=== PATIENT | female | born 1985 | race Caucasian/White ===

== ENCOUNTER 2020-04-26 09:57 | Day surgery (SDC) | payer BC, OTHER ==
[2020-04-24 12:01] VITALS: BMI 35.4
[~2020-04-26 09:57] MED LIST: DEXAMETHASONE SOD PHOSPHATE 10 MG/ML 1 ML VIAL IV ONE; HYDROmorphone 0.5 MG/0.5 ML SYRINGE IVP PRN; KETOROLAC 30 MG/ML 1 ML VIAL IVP SCH; LACTATED RINGERS 1,000 ML IV SCH; LIDOCAINE 1% (10MG/ML) FOR IV START INTRADERMA PRN; ONDANSETRON 4 MG/2 ML VIAL IVP PRN; SCOPOLAMINE 1.5MG/72HR PATCH TRANSDERM ONE
[2020-04-26 10:11] VITALS: RESP 16
[2020-04-26] MEDS ORDERED: ONDANSETRON 4 MG/2 ML VIAL ONE (10:20)
[2020-04-26] MEDS ORDERED: LIDOCAINE 1% (10MG/ML) FOR IV START INTRADERMA ONE (10:30)
[2020-04-26 10:32] LABS: Basophils # (A) 0.1 k/uL (0-0.2); Basophils % (A) 1 %; Eosinophils # (A) 0.1 k/uL (0-0.7); Eosinophils % (A) 1 %; HGB 14.3 gm/dL (11.4-16.0); Lymphocytes % (A) 25 %; MCH 27.9 pg (25.0-35.0); MCHC 33.2 g/dL (31.0-37.0); Mean Platelet Volume 7.1; Monocytes # (A) 0.4 k/uL (0-1.0); Monocytes % (A) 5 %; Neutrophils # (A) 5.3 k/uL (1.3-7.7); Neutrophils % (A) 66 %; Platelet Count 268 k/uL (150-450); RBC 5.13 m/uL (3.80-5.40); RDW 12.6 % (11.5-15.5); WBC 8.1 k/uL (3.8-10.6)
[2020-04-26] MEDS ORDERED: SUCCINYLCHOLINE CHLORIDE 100 MG/5 ML SYR IV ONE (11:00)
[2020-04-26] MEDS ORDERED: LIDOCAINE 1% INJ 10MG/ML (20 ML MDV) ONE (11:00)
[2020-04-26] MEDS ORDERED: KETOROLAC 30 MG/ML 1 ML VIAL ONE (11:00)
[2020-04-26] MEDS ORDERED: MIDAZOLAM 2 MG/2 ML VIAL ONE (11:00)
[2020-04-26] MEDS ORDERED: PROPOFOL 10 MG/ML 20 ML VIAL IV ONE (11:00)
[2020-04-26] MEDS ORDERED: fentaNYL (PF) 50 MCG/ML 2 ML AMP ONE (11:00)
[2020-04-26] MEDS ORDERED: METOCLOPRAMIDE 5 MG/ML 2 ML VIAL IVP PRN (11:41)
[2020-04-26] MEDS ORDERED: KETOROLAC 30 MG/ML 1 ML VIAL IVP PRN (11:41)
[2020-04-26] MEDS ORDERED: diphenhydrAMINE 50 MG/ML 1 ML VIAL IVP PRN (11:41)
[2020-04-26] MEDS ORDERED: Acetaminophen-Codeine 300-30mg TAB PO PRN ×2 (11:41)
[2020-04-26] MEDS ORDERED: IBUPROFEN 600 MG TAB PO PRN (11:41)
[2020-04-26] MEDS ORDERED: SIMETHICONE 80 MG CHEWABLE PO PRN (11:41)
[2020-04-26] MEDS ORDERED: LACTATED RINGERS 1,000 ML IV SCH (11:45)
--- NOTE | 2020-04-26 11:46 | P.OP ---
Date of Procedure: 04/26/20 Preoperative Diagnosis: #1. 8+ week missed Postoperative Diagnosis: Same Procedure(s) Performed: #1. Dilation and aspiration curettage Anesthesia: ADOLPH Surgeon: Jr Storey Estimated Blood Loss (ml): 200 IV fluids (ml): 700 Urine output (ml): 20 Pathology: other (Endometrial contents) Condition: stable Disposition: PACU Operative Findings: Preoperative pelvic examination demonstrated a roughly 9 week slightly retr overted mobile normal shaped uterus. There was also noted to be fairly significant prolapse with the cervix at just under grade 3 descensus. The uterus sounded to 11 cm. The #9 curved aspiration curet was utilized and tissue was clearly seen passing through the tubing. There was no tissue with a sharp curette or on the final pass of the aspiration curet and the typical gritty texture was encountered throughout. The patient is an excellent candidate for vaginal instructed he should it ever become necessary. Description of Procedure: The patient was prepped and draped in usual fashion after general endotracheal anesthesia was administered by the anesthesiologist. A weighted speculum was placed and the bladder drained of approximately 20 mL of clear denton urine. A single-tooth tenaculum was applied to the anterior lip of the cervix and uterus sounded to 11 cm as noted above. Serial dilation was carried out to admit a #9 curved aspiration curet which was placed to the fundus of the uterus and suction applied. After adequate suction had been built, thorough circumferential aspiration curettage was carried out from fundus to cervix with tissue clearly s een passing through the tubing. A second pass was made with the aspiration curet at which time no tissue seen passing through the tubing. It was then set aside for moment in favor of a medium sharp curet which was utilized to thoroughly and circumferentially curet the in vitro cavity with the typical gritty texture encountered throughout. No tissue was returned. One last pass was made with the aspiration curet was time no further tissue was noted. All instrumentation was removed. The uterus was appreciably smaller following the procedure. There was no ongoing bleeding from the cervix. Estimated blood loss for the case is approximately 200 mL. There were no complications. All sponge, instrument, and needle counts were correct. The patient tolerated the procedure well and proceeded to the recovery room in stable condition.
[2020-04-26 11:47] VITALS: TEMP 97.6
[2020-04-26] MEDS ORDERED: LACTATED RINGERS 1,000 ML IV ONE (12:24)
[2020-04-26 12:46] VITALS: BP 110/79; PULSE 84
== END 2020-04-26 13:06 | disposition home or self-care (01) ==
LOC: OR 09:57
PROVIDERS: ATTEND Obstetrics & Gynecology
DX: O02.1 Missed abortion (principal); J45.909 Unspecified asthma, uncomplicated; G25.81 Restless legs syndrome; G47.30 Sleep apnea, unspecified; E28.2 Polycystic ovarian syndrome; Z90.49 Acquired absence of other specified parts of digestive tract; Z98.890 Other specified postprocedural states; Z82.49 Family history of ischemic heart disease and other diseases of the circulatory system; Z79.899 Other long term (current) drug therapy; Z88.6 Allergy status to analgesic agent
CPT/HCPCS: 85025; 59820; J2250; J1100; J2405; J2001; J3010; J1885; J0330; J2704; 88305

== ENCOUNTER 2021-03-24 10:15 | Outpatient (CLI) | payer BC ==
[2021-03-24 12:23] VITALS: BP 133/79; PULSE 112; RESP 16; TEMP 98.4
--- NOTE | 2021-04-20 11:24 | P.MSEPDOC ---
Presenting Problems - Arrival Data Date of Arrival on Unit: 03/24/21 Time of Arrival on Unit: 10:15 Mode of Transport: Ambulatory - Complaint OB-Reason for Admission/Chief Complaint: NST Medical History - Information : 6 Para: 3 Term: 3 : 0 Abortions: Spontaneous or Elective: 2 Number of Living Children: 3 - Gestational Age Gestational Age by RUEL (wks/days): 32 Weeks and 5 Days - History Complications: GDM Review of Systems - Review of Systems Constitutional: No problems Breast: No problems ENT: No problems Cardiovascular: No problems Respiratory: No problems Gastrointestinal: No problems Genitourinary: No problems Musculoskeletal: No problems Neurological: No problems Skin: No problems Vital Signs - Temperature Temperature: 98.4 F Temperature Source: Oral - Pulse Right Sitting Pulse Rate: 112 Pulse Assessment Method: Automatic Cuff - Respirations Respiratory Rate: 16 Oxygen Delivery Method: Room Air - Blood Pressure Right Arm Blood Pressure: 133/79 Blood Pressure Mean: 97 Blood Pressure Source: Automatic Cuff Medical Screen Scoring - Assessment - Baby A Baseline FHR: 130 Physician Notification - Physician Notified Physician Notified Date: 03/24/21 Physician Notified Time: 12:06 Physician: Bridger Saenz Order Received: Yes (D/C home) Disposition - Disposition OB Disposition: Discharge to home Discharge Date: 03/24/21 Discharge Time: 12:06 I agree with the RN Medical Screening Exam: Yes Physician's MSE Comment: I have neither seen nor examined the patient. Case reviewed; plan agreed upon as documented in EMR&OBIX.: Yes Diagnosis: RELATED CONDITIONS, UNSPECIFIED, THIRD TRIMESTER
== END 2021-03-24 12:10 | disposition home or self-care (01) ==
LOC: FBPOP 10:15
PROVIDERS: ATTEND Obstetrics & Gynecology
DX: O26.93 Pregnancy related conditions, unspecified, third trimester (principal); Z3A.32 32 weeks gestation of pregnancy
CPT/HCPCS: 59025; 99213

== ENCOUNTER 2021-05-12 06:15 | Inpatient (IN) | payer BC ==
[2021-05-12] MEDS ORDERED: METHYLERGONOVINE 0.2 MG/ML 1 ML AMP IM PRN (06:35)
[2021-05-12] MEDS ORDERED: TERBUTALINE 1 MG/ML VIAL SQ PRN (06:35)
[2021-05-12] MEDS ORDERED: LIDOCAINE 0.5% (PF) 5 MG/ML (50 ML SDV) SQ PRN (06:35)
[2021-05-12] MEDS ORDERED: OXYTOCIN 10 UNIT/ML 1 ML VIAL IM PRN (06:35)
[2021-05-12] MEDS ORDERED: CARBOPROST TROMETHAMINE 250 MCG/ML 1 ML AMP IM PRN (06:35)
[2021-05-12] MEDS ORDERED: OXYTOCIN 30 UNITS/500 ML NS 30 UNIT in SALINE 1 500ML.BAG IV SCH ×2 (06:45→17:30)
[2021-05-12] MEDS: LACTATED RINGERS 1,000 ML IV SCH ×2 (06:48→13:12)
[2021-05-12 07:05] LABS: Basophils % (A) 0 %; Eosinophils # (A) 0.1 k/uL (0-0.7); Eosinophils % (A) 1 %; HCT 34.3 % (34.0-46.0); HGB 11.7 gm/dL (11.4-16.0); Lymphocytes # (A) 2.3 k/uL (1.0-4.8); Lymphocytes % (A) 23 %; MCH 26.7 pg (25.0-35.0); MCV 78.5 fL (80.0-100.0); Monocytes # (A) 0.7 k/uL (0-1.0); Monocytes % (A) 7 %; Neutrophils # (A) 6.6 k/uL (1.3-7.7); Neutrophils % (A) 67 %; Platelet Count 250 k/uL (150-450); RBC 4.38 m/uL (3.80-5.40); RDW 13.5 % (11.5-15.5); WBC 9.9 k/uL (3.8-10.6)
[2021-05-12 07:16] LABS: Glucose,Whole Blood 86 mg/dL (75-99)
[2021-05-12] MEDS ORDERED: BUTORPHANOL 1 MG/ML 1 ML VIAL IV PRN (08:43)
--- NOTE | 2021-05-12 08:50 | P.HPOB ---
History of Present Illness H&P Date: 05/12/21 Chief Complaint: 39+ weeks, induction of labor The patient is a 36-year-old 6 para 30-3 admitted at 39+ weeks as established by last menstrual period and confirmed by 9 week ultrasound. She is admitted for elective induction of labor with all signs reassuring. Her has been uncomplicated by advanced maternal age with the patient having declined testing. She additionally was found to be a gestational diabetic which ultimately required insulin to control but was well- controlled throughout the . She has a history of nephrolithiasis with 1 episode during the as well. She is additionally found to have the fetus at the 90th percentile growth in the third trimester and additionally had polyhydramnios. testing throughout the has been reassuring. Group B strep status is negative. Obstetrical history 6 para 30-3 with 3 term vaginal deliveries and 2 early miscarriages. Current statistics are listed in history present illness. EDC of 05/14/2021 was established by last menstrual period and confirmed by 9 week ultrasound. Laboratory workup demonstrates a blood type of O+ with a negative antibody screen. Rubella status is immune. Remainder of the laboratory workup was within normal limits. Early Glucola was elevated and followed by an abnormal three-hour glucose tolerance test making the diagnosis of gestational diabetes. Group B strep status is negative. Aerologist history: Unremarkable with no history of any infections to include STDs. Review of Systems Review of systems is confined to history of present illness. Past Medical History Past Medical History: Asthma, GERD/Reflux Additional Past Medical History / Comment(s): kidney stones, History of Any Multi-Drug Resistant Organisms: None Reported Past Surgical History: Adenoidectomy, Cholecystectomy, Ear Surgery Additional Past Surgical History / Comment(s): BMT Past Anesthesia/Blood Transfusion Reactions: Motion Sickness, Postoperative Nausea & Vomiting (PONV) Past Psychological History: No Psychological Hx Reported Smoking Status: Never smoker Past Alcohol Use History: None Reported Past Drug Use History: None Reported - Past Family History Sister(s) Family Medical History: Pulmonary Embolus Additional Family Medical History / Comment(s): Stroke Father Family Medical History: Cancer Additional Family Medical History / Comment(s): Throat Medications and Allergies Home Medications Medication Instructions Recorded Confirmed Type Insulin Aspart [NovoLOG] 0 units SQ ACHS 03/24/21 05/12/21 History Insulin Glargine [Lantus] 12 unit SQ DAILY 03/24/21 05/12/21 History Pnv No.95/Ferrous Fum/Folic AC 1 tab PO DAILY 03/24/21 05/12/21 History [ Multivitamin Tablet] Allergies Allergy/AdvReac Type Severity Reaction Status Date / Time NSAIDS (Non-Steroidal AdvReac Abdominal Verified 05/12/21 07:00 Anti-Inflamma Pain Exam Vital Signs Temp Pulse Resp BP Pulse Ox 05/12/21 06:33 97.1 F L 104 H 16 132/72 99 Intake and Output 05/11/21 05/12/21 05/12/21 22:59 06:59 14:59 Other: Weight 92.986 kg In general, this is a well-developed, well-nourished white female in no acute distress. Her heart has a regular rhythm and rate without murmur. Her lungs are clear to auscultation bilaterally in all ortiz. Her abdomen is gravid, nondistended, has normal active bowel sounds, soft, nontender, and without any palpable masses aside from uterine fundus. Her extremities without any cyanosis, clubbing, or significant edema and are nontender to palpation bilaterally. Digital cervical examination demonstrates her cervix to be 3+ centimeters dilated, approximately 50% effaced, the vertex in presentation at -2 station. Artificial rupture of membranes is carried out demonstrating clear to lightly meconium-stained fluid. Results Result Diagrams: 05/12/21 06:45 Abnormal Lab Results - Last 24 Hours (Table) 05/12/21 Range/Units 06:45 MCV 78.5 L (80.0-100.0) fL Assessment and Plan (1) Polyhydramnios Current Visit: Yes Status: Acute Code(s): O40.9XX0 - POLYHYDRAMNIOS, UNSP TRIMESTER, NOT APPLICABLE OR UNSP SNOMED Code(s): 00727287 (2) Term Current Visit: Yes Status: Acute Code(s): Z34.90 - ENCNTR FOR SUPRVSN OF NORMAL , UNSP, UNSP TRIMESTER SNOMED Code(s): 70695882 (3) macrosomia in Current Visit: Yes Status: Acute Code(s): O36.60X0 - MATERNAL CARE FOR EXCESS GROWTH, UNSP TRIMESTER, UNSP SNOMED Code(s): 28502840 (4) Gestational diabetes Current Visit: Yes Status: Acute Code(s): O24.419 - GESTATIONAL DIABETES MELLITUS IN , UNSP CONTROL SNOMED Code(s): 23251811 Plan: The patient has had Pitocin augmentation started. She has undergone artificial rupture of membranes. She will have close maternal and surveillance and expectant management will be practiced. Given her diabetes, she will have blood sugars monitored every 2 hours or closer necessary. She is a good candidate for either IV or epidural analgesia. I would anticipate normal spontaneous vaginal delivery sometime this afternoon.
[2021-05-12 09:25] LABS: Glucose,Whole Blood 80 mg/dL (75-99)
[2021-05-12 11:39] LABS: Glucose,Whole Blood 83 mg/dL (75-99)
[2021-05-12] MEDS ORDERED: SODIUM CHLORIDE 0.9% 100 ML BAG ONE (13:05)
[2021-05-12] MEDS ORDERED: fentaNYL (PF) 50 MCG/ML 5 ML AMP ONE (13:05)
[2021-05-12] MEDS ORDERED: ROPIVACAINE 5MG/ML 20ML VIAL ONE (13:05)
[2021-05-12 13:55] LABS: Glucose,Whole Blood 83 mg/dL (75-99)
[2021-05-12] MEDS ORDERED: SIMETHICONE 80 MG CHEWABLE PO PRN (17:23)
[2021-05-12] MEDS ORDERED: HYDROCORTISONE 2.5% RECTAL CREAM 30 GM TUBE RECTAL PRN (17:23)
[2021-05-12] MEDS ORDERED: diphenhydrAMINE 25 MG CAP PO PRN (17:23)
[2021-05-12] MEDS ORDERED: ZOLPIDEM 5 MG TAB PO PRN (17:23)
[2021-05-12] MEDS ORDERED: diphenhydrAMINE 50 MG CAP PO PRN (17:23)
[2021-05-12] MEDS ORDERED: HYDROcodone/APAP 7.5-325MG 1 EACH TAB PO PRN (17:23)
[2021-05-12] MEDS ORDERED: LANOLIN CREAM 5 GM TUBE TOPICAL PRN (17:23)
[2021-05-12] MEDS ORDERED: HYDROcodone/APAP 5-325MG 1 EACH TAB PO PRN (17:23)
[2021-05-12] MEDS ORDERED: diphenhydrAMINE 50 MG/ML 1 ML VIAL IVP PRN ×2 (17:23)
[2021-05-12] MEDS ORDERED: BENZOCAINE/MENTHOL SPRAY 1 GM/SPRAY AEROSOL TOPICAL PRN (17:23)
--- NOTE | 2021-05-12 17:27 | P.PROBDLV ---
Vaginal Delivery Note - . Vaginal Delivery Note: The patient is a 36-year-old 6 para 3023 admitted at 39-5/7 weeks by good dating parameters. She is admitted for elective induction of labor with all signs reassuring. Her has been complicated by advanced maternal age though she declined any trisomy testing. She additionally was found to have gestational diabetes which ultimately required insulin. testing was reassuring throughout the third trimester. Group E strep status is negative. On labor and delivery, she had Pitocin started followed by artificial rupture of membranes for clear fluid. She made progress to the active phase of labor and had an epidural catheter placed for analgesia. She then progressed through the active phase to complete. She had a trial of pushing but was somewhat ineffective secondary to the density of the epidural. As a result, the epidural was discontinued and the patient began to push again. She pushed over the course of approximately 45 minutes to a normal spontaneous vaginal delivery of a viable 9 lbs. 1 oz. baby boy with Apgars of 9 at 1 minute and 9 at 5 minutes delivered in the left occiput anterior position. The placenta was delivered spontaneously, intact, and grossly normal with a grossly normal three- vessel cord inserted approximate 5 cm from the margin of the placental disc. There were no lacerations of the perineum, vagina, or cervix. Estimated blood loss for the case was approximately 100 mL. There were no complications. All sponge, instrument, needle counts were correct. Both mother and infant are resting comfortably in recovery.
[2021-05-12] MEDS: IBUPROFEN 600 MG TAB PO SCH (18:33)
[2021-05-12] MEDS: SENNOSIDES-DOCUSATE SODIUM 1 EACH TAB PO SCH (19:33)
[2021-05-12] MEDS: ACETAMINOPHEN TAB 325 MG TAB PO PRN (19:33)
[2021-05-13] MEDS: IBUPROFEN 600 MG TAB PO SCH ×2 (05:06→15:29)
[2021-05-13 06:21] LABS: Basophils % (A) 0 %; Eosinophils # (A) 0.1 k/uL (0-0.7); Eosinophils % (A) 1 %; HCT 31.4 % (34.0-46.0); HGB 10.8 gm/dL (11.4-16.0); Lymphocytes # (A) 2.1 k/uL (1.0-4.8); Lymphocytes % (A) 20 %; MCH 27.2 pg (25.0-35.0); MCHC 34.5 g/dL (31.0-37.0); MCV 78.9 fL (80.0-100.0); Monocytes # (A) 0.8 k/uL (0-1.0); Monocytes % (A) 7 %; Neutrophils # (A) 7.1 k/uL (1.3-7.7); Neutrophils % (A) 70 %; Platelet Count 227 k/uL (150-450); RBC 3.98 m/uL (3.80-5.40); RDW 13.6 % (11.5-15.5); WBC 10.2 k/uL (3.8-10.6)
[2021-05-13] MEDS: SENNOSIDES-DOCUSATE SODIUM 1 EACH TAB PO SCH (08:22)
[2021-05-13] MEDS: ACETAMINOPHEN TAB 325 MG TAB PO PRN (08:22)
[2021-05-13 08:27] VITALS: TEMP 98
--- NOTE | 2021-05-13 11:22 | P.DS ---
Providers Date of admission: 05/12/21 06:22 Expected date of discharge: 05/13/21 Attending physician: Jr Storey Primary care physician: Stated None - Discharge Diagnosis(es) (1) Polyhydramnios Current Visit: Yes Status: Acute (2) Term Current Visit: Yes Status: Acute (3) macrosomia in Current Visit: Yes Status: Acute (4) Gestational diabetes Current Visit: Yes Status: Acute (5) Normal spontaneous vaginal delivery Current Visit: Yes Status: Acute Hospital Course: The patient is a 36-year-old 6 para 3023 admitted at 39-5/7 weeks by good dating parameters. She is admitted for elective induction with all signs reassuring. Her was complicated by advanced maternal age though she declined any testing. She was additionally found to be a gestational diabetic and ultimately required insulin for what was otherwise excellent cycle control. testing was reassuring. Group B strep status is negative. On labor and delivery, she had Pitocin started followed by artificial rupture of membranes for clear fluid. She made progress into the active phase and had an epidural catheter placed for analgesia. She then progressed to complete and pushed to a normal spontaneous vaginal delivery of a viable 9 lbs. 1 oz. baby boy with Apgars of 9 at 1 minute and 9 at 5 minutes. Her course was unremarkable vital signs remaining stable and her temperature was afebrile throughout. She was deemed stable for discharge on day #1 was discharged home to follow-up in the office in 6 weeks' time routinely. Discharge instructions included calling for any significantly increased bleeding or foul-smelling lochia, significantly increased fever abdominal pain, perineal complaints, breast complaints, or anything else that concerned her. She was additionally instructed to have nothing in the vagina for at least 6 weeks time to include intercourse. She understood her instructions and agrees to follow up as noted above. Discharge medications included continued vitamins as she has opted to breast-feed. She was otherwise to use [id number] analgesic pain medications as needed. Maternal blood type is O+ and rubella status is immune. Procedures: #1. Pitocin induction #2. Artificial rupture of membranes #3. Epidural analgesia #4. Normal spontaneous vaginal delivery Patient Condition at Discharge: Stable Plan - Discharge Summary New Discharge Prescriptions: No Action Insulin Glargine [Lantus] 12 unit SQ DAILY Insulin Aspart [NovoLOG] 0 units SQ ACHS Pnv No.95/Ferrous Fum/Folic AC [ Multivitamin Tablet] 1 tab PO DAILY Discharge Medication List Insulin Aspart [NovoLOG] 0 units SQ ACHS 03/24/21 [History] Insulin Glargine [Lantus] 12 unit SQ DAILY 03/24/21 [History] Pnv No.95/Ferrous Fum/Folic AC [ Multivitamin Tablet] 1 tab PO DAILY 03/24/21 [History] Follow up Appointment(s)/Referral(s): Jr Storey MD [STAFF PHYSICIAN] - 6 Weeks Discharge Disposition: HOME SELF-CARE
[2021-05-13 17:22] VITALS: BP 98/69; PULSE 71; RESP 18
== END 2021-05-13 19:00 | disposition home or self-care (01) | DRG 807 ==
LOC: 4FBP 06:22
PROVIDERS: ADMIT Obstetrics & Gynecology; ATTEND Obstetrics & Gynecology
PROC: 10907ZC Drainage of Amniotic Fluid, Therapeutic from Products of Conception, Via Natural or Artificial Opening (ICD-10-PCS; principal; 2021-05-12)
PROC: 10E0XZZ Delivery of Products of Conception, External Approach (ICD-10-PCS; principal; 2021-05-12)
PROC: 3E033VJ Introduction of Other Hormone into Peripheral Vein, Percutaneous Approach (ICD-10-PCS; principal; 2021-05-12)
DX: O24.424 Gestational diabetes mellitus in childbirth, insulin controlled (principal); Z37.0 Single live birth; O36.63X0 Maternal care for excessive fetal growth, third trimester, not applicable or unspecified; O40.3XX0 Polyhydramnios, third trimester, not applicable or unspecified; J45.909 Unspecified asthma, uncomplicated; O99.513 Diseases of the respiratory system complicating pregnancy, third trimester; O99.613 Diseases of the digestive system complicating pregnancy, third trimester; K21.9 Gastro-esophageal reflux disease without esophagitis; Z3A.39 39 weeks gestation of pregnancy; Z87.442 Personal history of urinary calculi
CPT/HCPCS: 85025; 86850; 86900; 86901